=== PATIENT | male | born 1960 | race Caucasian/White ===

== ENCOUNTER 2018-05-06 12:00 | Outpatient (CLI) | payer BC ==
[~2018-05-06 12:00] MED LIST: LOSA50TA63 PO
== END 2018-05-06 12:45 | disposition home or self-care (01) ==
LOC: SLEEP 12:00
PROVIDERS: ATTEND Family Medicine
DX: G47.33 Obstructive sleep apnea (adult) (pediatric) (principal); I10 Essential (primary) hypertension

== ENCOUNTER 2018-06-24 20:49 | Outpatient (CLI) | payer BC | END 2018-06-25 06:35 | disposition home or self-care (01) | LOC: SLEEP 20:49 | PROVIDERS: ATTEND Family Medicine | DX: G47.33 Obstructive sleep apnea (adult) (pediatric) (principal); I10 Essential (primary) hypertension; R53.83 Other fatigue | CPT/HCPCS: 95811 ==

== ENCOUNTER → 2020-09-15 | Outpatient (CLI) | payer BC ==
[~2020-09-15] MED LIST changes: +CATHETER FLUSH 10 ML SYR IV PRN; +HOLD METFORMIN - RECEIVED CONTRAST 20 ML VIAL IV SCH; +IOHEXOL 350 MG/ML 100 ML (OMNIPAQUE 350) VIAL IV ONE; +NS 100 ML (IVPB) BAG IV ONE
[2020-09-15 12:17] LABS: BUN/CREATININE RATIO 13; GFR ESTIMATED > 60
--- NOTE | 2020-09-15 13:50 | Diagnostic Imaging Report ---
EXAMINATION: CT of the orbits without contrast HISTORY: Left periorbital edema TECHNIQUE: Computed tomography of the orbits was performed without intravenous contrast according to standard protocol. All CT scans use one or more of the following dose optimizing techniques: automated exposure control, MA and/or KvP adjustment based on patient size and exam type or iterative reconstruction. COMPARISON: None available. FINDINGS: There is edema and stranding surrounding the left orbit. There is no extension of the stranding into the post septal portion of the orbit. The retroconal fat is normal. The globe itself is normal in shape and internal attenuation. The globes are normal in contour and size. There is no orbital mass. The extra-ocular muscles are normal in size. The lacrimal glands are normal in appearance. The optic nerves and optic chiasm are normal. There is no suprasellar mass. The bony orbits are intact. There is mucous retention cyst in left maxillary sinus. No areas of bony erosion are identified. The remaining maxillofacial bones are unremarkable. The included portions of the brain and brainstem are normal. IMPRESSION: 1. Stranding about the left orbit without extension into the postseptal fat. Findings may be related to trauma or cellulitis. Dictated by: Dictated on workstation # [id number]
== END ==
LOC: RAD 13:15
PROVIDERS: ATTEND Family Medicine
DX: R60.0 Localized edema (principal)
CPT/HCPCS: 36415; 70481; 82565; 84520

== ENCOUNTER → 2021-05-10 | Outpatient (CLI) | payer BC ==
[~2021-05-10] MED LIST changes: -CATHETER FLUSH 10 ML SYR IV PRN; -HOLD METFORMIN - RECEIVED CONTRAST 20 ML VIAL IV SCH; -IOHEXOL 350 MG/ML 100 ML (OMNIPAQUE 350) VIAL IV ONE; -NS 100 ML (IVPB) BAG IV ONE
== END ==
LOC: LABNPT 08:00
PROVIDERS: ATTEND Family Medicine
DX: U07.1 COVID-19 (principal)
CPT/HCPCS: 87635